=== PATIENT | male | born 1985 | race African-American/Black ===

== ENCOUNTER 2017-07-09 15:20 | Emergency (ER) | payer OTHER ==
[~2017-07-09] VITALS: Ht 180.3 cm; Wt 84.6 kg
[2017-07-09 15:21] VITALS: BP 137/82
== END 2017-07-09 16:16 | disposition home or self-care (01) ==
LOC: ED 16:10
DX: M76.9 Unspecified enthesopathy, lower limb, excluding foot (principal)
CPT/HCPCS: 99284

== ENCOUNTER → 2017-08-05 | Outpatient (CLI) | payer OTHER | LOC: CFH 07:16 | PROVIDERS: ATTEND Orthopaedic Surgery | DX: M23.92 Unspecified internal derangement of left knee (principal); R60.0 Localized edema; G89.29 Other chronic pain ==

== ENCOUNTER 2019-01-11 15:10 | Emergency (ER) | payer OTHER ==
[~2019-01-11] VITALS: Ht 180.3 cm; Wt 84.5 kg
[2019-01-11 15:12] VITALS: BP 137/88
--- NOTE | 2019-01-11 16:15 | NUR ---
PATIENT TO RADIOLOGY
[2019-01-11] MEDS ORDERED: ACETAMINOPHEN 325 MG TABLET ONE (16:23)
[2019-01-11] MEDS ORDERED: ACETAMINOPHEN 325 MG TABLET PO ONE (16:30)
--- NOTE | 2019-01-11 16:30 | NUR ---
MEDICATED PER EMAR
== END 2019-01-11 16:58 | disposition home or self-care (01) ==
LOC: ED 16:15
DX: B34.9 Viral infection, unspecified (principal); J01.10 Acute frontal sinusitis, unspecified
CPT/HCPCS: 71046; 99283